=== PATIENT | male | born 1985 | race Caucasian/White ===

== ENCOUNTER 2019-09-05 13:00 | Outpatient (CLI) | payer OTHER ==
[2019-09-05 19:27] LABS: BASOPHILS % (AUTO) 0.3 %; EOSINOPHILS # (AUTO) 0.1 10^3/uL (0.0-0.7); EOSINOPHILS % (AUTO) 0.6 %; HGB - HEMOGLOBIN 16.2 g/dL (14.0-18.0); LYMPHOCYTES # (AUTO) 1.7 10^3/uL (1.5-3.5); LYMPHOCYTES % (AUTO) 22.5 %; MEAN CORPUSCULAR HEMOGLOBIN 30.7 pg (27.0-31.0); MEAN CORPUSCULAR HGB CONC 33.1 g/dL (32.0-36.0); MEAN CORPUSCULAR VOLUME 92.8 fL (80.0-94.0); MEAN PLATELET VOLUME 10.2 fL (7.4-11.4); MONOCYTES # (AUTO) 0.6 10^3/uL (0.0-1.0); MONOCYTES % (AUTO) 7.6 %; NEUTROPHILS # (AUTO) 5.3 10^3/uL (1.5-6.6); NEUTROPHILS % (AUTO) 68.5 %; PLT - PLATELET COUNT 207 10^3/uL (130-450); RED BLOOD COUNT 5.28 10^6/uL (4.70-6.10); RED CELL DISTRIBUTION WIDTH 12.6 % (12.0-15.0); WHITE BLOOD COUNT 7.7 x10^3/uL (4.8-10.8)
[2019-09-05 19:41] LABS: ALBUMIN 4.7 g/dL (3.2-5.5); ALBUMIN/GLOBULIN RATIO 1.4 (1.0-2.2); BILIRUBIN,TOTAL 1.1 mg/dL (0.2-1.0); CALCIUM 9.8 mg/dL (8.5-10.3); TOTAL PROTEIN 8.1 g/dL (6.7-8.2)
[2019-09-05 19:55] LABS: HB2 TOTAL 16.1 g/dL; HEMOGLOBIN A1C 0.56 g/dL; HEMOGLOBIN A1C % 5.3 % (4.6-6.2)
== END 2019-09-05 23:59 | disposition home or self-care (01) ==
LOC: LAB.N 13:00
PROVIDERS: ATTEND Family Medicine
DX: I10 Essential (primary) hypertension (principal)
CPT/HCPCS: 36415; 80053; 83036; 84443; 85025

== ENCOUNTER 2020-09-24 08:00 | Outpatient (CLI) | payer OTHER ==
[2020-09-24 18:07] LABS: BASOPHILS % (AUTO) 0.2 %; EOSINOPHILS % (AUTO) 0.2 %; HGB - HEMOGLOBIN 15.3 g/dL (14.0-18.0); LYMPHOCYTES % (AUTO) 14.9 %; MEAN CORPUSCULAR HEMOGLOBIN 32.1 pg (27.0-31.0); MEAN CORPUSCULAR HGB CONC 33.6 g/dL (32.0-36.0); MEAN CORPUSCULAR VOLUME 95.8 fL (80.0-94.0); MEAN PLATELET VOLUME 10.2 fL (7.4-11.4); MONOCYTES # (AUTO) 0.5 10^3/uL (0.0-1.0); MONOCYTES % (AUTO) 7.4 %; NEUTROPHILS # (AUTO) 5.1 10^3/uL (1.5-6.6); NEUTROPHILS % (AUTO) 77.1 %; PLT - PLATELET COUNT 196 10^3/uL (130-450); RED BLOOD COUNT 4.76 10^6/uL (4.70-6.10); RED CELL DISTRIBUTION WIDTH 11.9 % (12.0-15.0); WHITE BLOOD COUNT 6.6 x10^3/uL (4.8-10.8)
[2020-09-24 18:24] LABS: ALBUMIN 4.9 g/dL (3.2-5.5); ALBUMIN/GLOBULIN RATIO 1.5 (1.0-2.2); ALKALINE PHOSPHATASE 56 IU/L (42-121); ALT ALANINE AMINOTRANSFERASE 69 IU/L (10-60); AST ASPARTATE AMINOTRANSFERASE 88 IU/L (10-42); BILIRUBIN,TOTAL 1.1 mg/dL (0.2-1.0); BUN - BLOOD UREA NITROGEN 18 mg/dL (6-20); CALCIUM 9.9 mg/dL (8.5-10.3); CARBON DIOXIDE - CO2 26 mmol/L (21-32); CHLORIDE 97 mmol/L (101-111); CHOL/HDL RATIO 2.2 (<5.0); CHOLESTEROL 245 mg/dL; CREATININE 0.7 mg/dL (0.6-1.2); GLUCOSE 114 mg/dL (70-100); HDL CHOLESTEROL 112 mg/dL; LDL CHOLESTEROL,CALCULATED 112 mg/dL; TOTAL PROTEIN 8.2 g/dL (6.7-8.2); VLDL CHOLESTEROL 21 mg/dL
== END 2020-09-24 23:59 | disposition home or self-care (01) ==
LOC: LAB.N 08:00
PROVIDERS: ATTEND Family Medicine
DX: I10 Essential (primary) hypertension (principal)
CPT/HCPCS: 36415; 80053; 80061; 83721; 84443; 85025

== ENCOUNTER 2020-10-01 09:06 | Outpatient (CLI) | payer OTHER ==
[2020-10-01 11:51] LABS: ALBUMIN 5.3 g/dL (3.2-5.5); ALKALINE PHOSPHATASE 46 IU/L (42-121); ALT ALANINE AMINOTRANSFERASE 46 IU/L (10-60); AST ASPARTATE AMINOTRANSFERASE 36 IU/L (10-42); TOTAL PROTEIN 8.5 g/dL (6.7-8.2)
[2020-10-01 11:59] LABS: BILIRUBIN,DIRECT < 0.1 mg/dL (0.1-0.5)
--- NOTE | 2020-10-01 15:07 | XRAY Report ---
PROCEDURE: Shoulder 3 View RT INDICATIONS: RIGHT SHOULDER PAIN TECHNIQUE: 3 views of the shoulder were acquired. COMPARISON: None. FINDINGS: Bones: No fractures or dislocations. No suspicious bony lesions. Visualized ribs appear intact. Soft tissues: No suspicious soft tissue calcifications. IMPRESSION: No trauma found. Source of current right shoulder pain is not seen. A definite pattern o f osteoarthritis also is not found. Reviewed by: Michael Post MD on 10/01/2020 3:05 PM [facility] Approved by: Michael Post MD on 10/01/2020 3:05 PM [facility] Station ID: [id number]
== END 2020-10-01 09:07 | disposition home or self-care (01) ==
LOC: DI.N 09:06
PROVIDERS: ATTEND Family Medicine
DX: Z00.01 Encounter for general adult medical examination with abnormal findings (principal); M25.511 Pain in right shoulder
CPT/HCPCS: 36415; 80076

== ENCOUNTER 2020-10-01 09:15 | Outpatient (CLI) | payer OTHER | END 2020-10-01 09:16 | disposition home or self-care (01) | LOC: DI.N 09:15 → LAB.N 09:16 | PROVIDERS: ATTEND Family Medicine | DX: Z00.01 Encounter for general adult medical examination with abnormal findings (principal) ==

== ENCOUNTER 2022-04-11 15:10 | Outpatient (CLI) | payer OTHER ==
[2022-04-11 18:24] LABS: BASOPHILS % (AUTO) 0.2 %; EOSINOPHILS % (AUTO) 0.5 %; HCT - HEMATOCRIT 38.1 % (42.0-52.0); HGB - HEMOGLOBIN 13.3 g/dL (14.0-18.0); LYMPHOCYTES # (AUTO) 1.4 10^3/uL (1.5-3.5); LYMPHOCYTES % (AUTO) 25.1 %; MEAN CORPUSCULAR HEMOGLOBIN 32.6 pg (27.0-31.0); MEAN CORPUSCULAR HGB CONC 34.9 g/dL (32.0-36.0); MEAN CORPUSCULAR VOLUME 93.4 fL (80.0-94.0); MEAN PLATELET VOLUME 10.2 fL (7.4-11.4); MONOCYTES # (AUTO) 0.5 10^3/uL (0.0-1.0); NEUTROPHILS # (AUTO) 3.6 10^3/uL (1.5-6.6); PLT - PLATELET COUNT 198 10^3/uL (130-450); RED BLOOD COUNT 4.08 10^6/uL (4.70-6.10); RED CELL DISTRIBUTION WIDTH 12.2 % (12.0-15.0); WHITE BLOOD COUNT 5.6 x10^3/uL (4.8-10.8)
[2022-04-11 18:34] LABS: ALBUMIN 4.7 g/dL (3.2-5.5); ALBUMIN/GLOBULIN RATIO 1.8 (1.0-2.2); ALKALINE PHOSPHATASE 44 IU/L (42-121); ALT ALANINE AMINOTRANSFERASE 26 IU/L (10-60); AST ASPARTATE AMINOTRANSFERASE 35 IU/L (10-42); BILIRUBIN,TOTAL 0.8 mg/dL (0.2-1.0); BUN - BLOOD UREA NITROGEN 14 mg/dL (6-20); CALCIUM 9.9 mg/dL (8.5-10.3); CARBON DIOXIDE - CO2 30 mmol/L (21-32); CHLORIDE 98 mmol/L (101-111); CHOL/HDL RATIO 2.3 (<5.0); CHOLESTEROL 223 mg/dL; CREATININE 0.7 mg/dL (0.6-1.2); GFR - MDRD 126 (>89); GLUCOSE 100 mg/dL (70-100); HDL CHOLESTEROL 99 mg/dL; LDL CHOLESTEROL,CALCULATED 108 mg/dL; LDL/HDL RATIO 1.1 (<3.6); POTASSIUM 3.7 mmol/L (3.5-5.0); SODIUM 135 mmol/L (135-145); TOTAL PROTEIN 7.3 g/dL (6.7-8.2); TRIGLYCERIDES 82 mg/dL; VLDL CHOLESTEROL 16 mg/dL
== END 2022-04-11 15:11 | disposition home or self-care (01) ==
LOC: LAB.N 15:10
PROVIDERS: ATTEND Nurse Practitioner
DX: I10 Essential (primary) hypertension (principal); Z13.220 Encounter for screening for lipoid disorders
CPT/HCPCS: 36415; 80053; 80061; 83721; 85025

== ENCOUNTER 2023-09-14 08:50 | Outpatient (CLI) | payer OTHER | END 2023-09-14 08:51 | disposition home or self-care (01) | LOC: LAB.N 08:50 | PROVIDERS: ATTEND Nurse Practitioner | DX: Z53.9 Procedure and treatment not carried out, unspecified reason (principal) ==

== ENCOUNTER 2023-11-29 08:57 | Emergency (ER) | payer OTHER ==
--- NOTE | 2023-11-29 09:07 | ED Physician Documentation ---
PD HPI LOWER EXT INJURY - Stated complaint Stated Complaint: RT FOOT INJ - Chief complaint Chief Complaint: Ext Problem - History obtained from History obtained from: Patient - Additional information Additional information: The patient comes to the emergency department chief complaint of pain on right foot dorsum after dropping a 5 pound plate on it yesterday. The patient states it hurt initially but not too bad, but today, it is much more painful to walk. He just wants to make sure he did not break anything. No other complaints or injuries. PD PAST MEDICAL HISTORY - Past Medical History Past Medical History: Yes Cardiovascular: Hypertension - Past Surgical History Past Surgical History: No - Present Medications Home Medications: Ambulatory Orders Medication Instructions Recorded Confirmed Lisinopril [Zestril] 40 mg PO DAILY 11/29/23 11/29/23 hydroCHLOROthiazide [Hydrodiuril] 25 mg PO DAILY 11/29/23 11/29/23 - Allergies Allergies/Adverse Reactions: Allergies Allergy/AdvReac Type Severity Reaction Status Date / Time fentanyl Allergy Diaphoresis Verified 11/29/23 09:01 - Social History Does the pt smoke?: No Smoking Status: Never smoker Does the pt drink ETOH?: Yes Does the pt have substance abuse?: No - Immunizations Immunizations are current?: Yes PD ED PE NORMAL - Vitals Vital signs reviewed: Yes - General General: Alert and oriented X 3, No acute distress, Well developed/nourished - HEENT HEENT: Atraumatic, EOMI, Moist mucous membranes - Neck Neck: Supple, no meningeal sign - Cardiac Cardiac: Strong equal pulses - Respiratory Respiratory: No respiratory distress - Derm Derm: Normal color, Warm and dry, No rash - Extremities Extremities: No deformity, Other (Tenderness to palpation over right foot dorsum around the first tarsometatarsal joint. No edema or contusion. Full range of motion of toes, but causes pain in affected area.) - Neuro Neuro: No motor deficit, No sensory deficit, Other (Grossly intact otherwise) - Psych Psych: Normal mood, Normal affect Results - Vitals Vitals: Vital Signs - 24 hr 11/29/23 09:02 Temperature 36.6 C Heart Rate 99 Respiratory 16 Rate Blood Pressure 190/106 H O2 Saturation 100 Oxygen O2 Source Room air - Rads (name of study) Right foot x-ray series Relevant Findings:: Final report received, EMP independent interpretation of test (Negative), See rad report PD Medical Decision Making - ED course Complexity details: reviewed results, re-evaluated patient, considered differential, d/w patient ED course: The patient was worked up with x-ray series of the right foot, which was negative. We have discussed symptomatic management at home, the self-limited nature of the symptoms, and the usual indications for return. Departure - Departure Disposition: 01 Home, Self Care Clinical Impression: Contusion of right foot Qualifiers: Encounter type: initial encounter Qualified Code(s): S90.31XA - Contusion of right foot, initial encounter Condition: Stable Instructions: ED Contusion Foot Comments: Your x-ray series is negative. You have bruised the top of your foot, and this may cause some pain for the next couple of weeks at most, but then should start to resolve on its own. Please follow-up with your primary doctor as needed. Forms: PCP List
--- NOTE | 2023-11-29 09:35 | XRAY Report ---
PROCEDURE: Foot 3+V RT INDICATIONS: R FOOT/GREAT TOE PAIN AFTER DROPPING WEIGHT ON IT TECHNIQUE: 3 views of the foot were acquired. COMPARISON: None. FINDINGS: Bones: No fractures or dislocations. No suspicious bony lesions. Soft tissues: No tibiotalar joint effusion. Achilles tendon appears normal. IMPRESSION: No visualized acute fracture or dislocation. However, occult injury cannot be excluded. Recommend judd rt interval imaging follow-up in 7-10 days as clinically indicated for additional evaluation. Reviewed by: Harriet Ozuna MD on 11/29/2023 9:34 AM PDT Approved by: Harriet Ozuna MD on 11/29/2023 9:34 AM PDT Station ID: [id number]
[2023-11-29 09:41] VITALS: BP 171/91; O2SAT 99
== END 2023-11-29 09:36 | disposition home or self-care (01) ==
LOC: ED 08:57
DX: S90.31XA Contusion of right foot, initial encounter (principal); W20.8XXA Other cause of strike by thrown, projected or falling object, initial encounter; I10 Essential (primary) hypertension
CPT/HCPCS: 99283